=== PATIENT | female | born 1995 | race Caucasian/White ===

== ENCOUNTER 2017-04-12 07:18 | Emergency (ER) | payer OTHER ==
[2017-04-12 07:45] VITALS: BP 126/90
[2017-04-12 08:27] LABS: BASOPHIL % 0.3 % (0-2); PLATELET COUNT 291 x10^3mcL (130-400); RED CELL DISTRIBUTION WIDTH 13.3 % (11.5-14.5)
[2017-04-12 08:30] LABS: microscopic required? YES; urine erythrocyte 2+ (NEGATIVE)
== END 2017-04-12 10:25 | disposition home or self-care (01) ==
LOC: ED 07:18
PROVIDERS: Emergency Medicine
DX: O20.0 Threatened abortion (principal); Z3A.08 8 weeks gestation of pregnancy
CPT/HCPCS: 36415

== ENCOUNTER 2017-05-08 22:04 | Emergency (ER) | payer OTHER ==
[~2017-05-08] VITALS: Ht 160 cm; Wt 58.5 kg
[2017-05-08 22:09] VITALS: Ht 160 cm; Wt 58.5 kg
[2017-05-08 23:32] LABS: microscopic required? YES; urine erythrocyte 2+ (NEGATIVE)
[2017-05-08 23:34] LABS: BASOPHIL % 0.7 % (0-2); PLATELET COUNT 272 x10^3mcL (130-400); RED CELL DISTRIBUTION WIDTH 13.6 % (11.5-14.5)
[2017-05-09 01:20] VITALS: BP 97/64
== END 2017-05-09 01:20 | disposition home or self-care (01) ==
LOC: ED 22:04
PROVIDERS: Emergency Medicine
DX: O23.41 Unspecified infection of urinary tract in pregnancy, first trimester (principal); O26.891 Other specified pregnancy related conditions, first trimester; Z3A.12 12 weeks gestation of pregnancy
CPT/HCPCS: 36415